=== PATIENT | female | born 1935 | race Caucasian/White ===

== ENCOUNTER 2023-12-29 04:22 | Inpatient (IN) | payer MEDICARE, OTHER ==
[~2023-12-29] VITALS: Ht 162.6 cm; Wt 73.4 kg
[2023-12-29 05:05] LABS: Basophils # (auto) 0 10 ^3/uL (0-0.2); Basophils % (auto) 0.3 % (0.0-2.0); Eosinophils # (auto) 0.1 10 ^3/uL (0-0.8); Hemoglobin 13.2 g/dL (12.2-16.2); Lymphocytes # (auto) 1.2 10 ^3/uL (0.4-5.4); Mean Corpuscular Hgb Conc. 34.7 g/dL (32.0-36.0); Mean Corpuscular Volume 97.9 fL (80.0-100.0); Monocytes # (auto) 0.6 10 ^3/uL (0-1.3); Monocytes % (auto) 9.3 % (0.0-12.0); Neutrophils # (auto) 4.8 10 ^3/uL (1.6-8.6); Neutrophils % (auto) 71.4 % (37.0-80.0); Platelet Count (auto) 184 10^3/uL (140-450); Red Blood Cells 3.88 10^6/uL (4.0-5.20); Red Cell Distribution Width 13.6 % (11.8-14.3); White Blood Cell 6.7 10^3/uL (4.4-10.8)
[2023-12-29 05:14] LABS: Chloride 109 mmol/L (98-107); Potassium 3.2 mmol/L (3.5-5.1); Sodium 140 mmol/L (136-145)
[2023-12-29 05:15] LABS: Anion Gap 7 (5-15); Carbon Dioxide 24 mmol/L (20-30)
[2023-12-29 05:16] LABS: Calcium 9.2 mg/dL (8.7-10.4)
[2023-12-29 05:20] LABS: BUN/Creatinine Ratio 23.6 (10.0-20.0); Blood Urea Nitrogen 13 mg/dL (9-23); Glucose 112 mg/dL (74-106)
[2023-12-29 05:30] VITALS: PULSE 70; RESP 17; O2SAT 95
[2023-12-29] MEDS: POTASSIUM EFFERVESENT TAB 25 MEQ PO ONE (05:43)
[2023-12-29 07:20] VITALS: PULSE 71; RESP 16; O2SAT 95
[2023-12-29] MEDS ORDERED: HYDROcodone-ACET 5/325MG TAB PO PRN (09:00)
[2023-12-29] MEDS ORDERED: NITROGLYCERIN 0.4 MG SL TAB SL PRN (09:00)
[2023-12-29] MEDS ORDERED: DOCUSATE SOD 100 MG CAP PO PRN (09:00)
[2023-12-29] MEDS ORDERED: ONDANSETRON HCL 4 MG/2 ML VIAL IV PRN (09:00)
[2023-12-29] MEDS: SODIUM CHLORIDE 0.9% 1,000 ML IV SCH (09:23)
[2023-12-29 09:29] LABS: Magnesium 1.8 mg/dL (1.6-2.6)
[2023-12-29 09:30] LABS: Phosphorus 2.6 mg/dL (2.4-5.1)
[2023-12-29] MEDS: ENOXAPARIN SOD 30 MG/0.3 ML SYRINGE SC SCH (09:58)
[2023-12-29 11:31] LABS: Urine Bacteria FEW /hpf (None Seen); Urine Blood Negative /uL (Negative); Urine Clarity Clear (Clear); Urine Color Light-Yellow (Yellow); Urine Hyaline Cast FEW /lpf (0 - 2); Urine Protein, UAD Negative (Negative); Urine Specific Gravity 1.009 (1.001-1.035); Urine Urobilinogen Normal (Negative); Urine WBC 2 /hpf (0 - 5)
[2023-12-29 19:35] VITALS: PULSE 69; RESP 11; O2SAT 96
[2023-12-30 06:05] LABS: Basophils # (auto) 0 10 ^3/uL (0-0.2); Basophils % (auto) 0.4 % (0.0-2.0); Eosinophils # (auto) 0 10 ^3/uL (0-0.8); Eosinophils % (auto) 0.7 % (0.0-7.0); Hematocrit 34.1 % (36.0-46.0); Hemoglobin 11.9 g/dL (12.2-16.2); Lymphocytes % (auto) 16.1 % (10.0-50.0); Mean Corpuscular Hemoglobin 33.3 pg (28.0-32.0); Mean Corpuscular Volume 95.2 fL (80.0-100.0); Monocytes # (auto) 0.5 10 ^3/uL (0-1.3); Monocytes % (auto) 7.9 % (0.0-12.0); Neutrophils # (auto) 4.9 10 ^3/uL (1.6-8.6); Neutrophils % (auto) 74.9 % (37.0-80.0); Platelet Count (auto) 166 10^3/uL (140-450); Red Blood Cells 3.58 10^6/uL (4.0-5.20); Red Cell Distribution Width 13.5 % (11.8-14.3); White Blood Cell 6.5 10^3/uL (4.4-10.8)
[2023-12-30 06:29] LABS: Alkaline Phosphatase 57 U/L (46-116); Anion Gap 7 (5-15); Blood Urea Nitrogen 6 mg/dL (9-23); Calcium 8.7 mg/dL (8.7-10.4); Carbon Dioxide 26 mmol/L (20-30); Chloride 108 mmol/L (98-107); Glucose 93 mg/dL (74-106); Potassium 3.3 mmol/L (3.5-5.1); Sodium 141 mmol/L (136-145)
[2023-12-30 06:31] LABS: Alanine Aminotransferase < 9 U/L (7-40); Albumin 3.5 g/dL (3.2-4.8); Aspartate Aminotransferase 20 U/L (13-40); Bilirubin, Total 1.5 mg/dL (0.2-1.0); Total Protein 5.9 g/dL (5.7-8.2)
[2023-12-30 13:32] VITALS: PULSE 82; RESP 6; O2SAT 98
[2023-12-30] MEDS: LORazepam 2MG/ML-1ML VIAL IV ONE (15:30)
[2023-12-30 20:00] VITALS: PULSE 83; RESP 16; O2SAT 99
[2023-12-30 23:00] VITALS: PULSE 69; RESP 12; O2SAT 99
[2023-12-31] MEDS: hydrALAZINE HCL 20 MG/ML VL IV ONE (05:44)
[2023-12-31 05:53] LABS: Chloride 109 mmol/L (98-107); Potassium 3.1 mmol/L (3.5-5.1); Sodium 142 mmol/L (136-145)
[2023-12-31 05:54] LABS: Anion Gap 6 (5-15); Calcium 9.3 mg/dL (8.7-10.4); Carbon Dioxide 27 mmol/L (20-30)
[2023-12-31 06:00] LABS: BUN/Creatinine Ratio 10.9 (10.0-20.0); Blood Urea Nitrogen 5 mg/dL (9-23); Glucose 87 mg/dL (74-106)
[2023-12-31 08:37] VITALS: PULSE 82; RESP 19; O2SAT 98
[2023-12-31 11:39] VITALS: PULSE 87; RESP 18; O2SAT 97
[2023-12-31 11:41] VITALS: BP 130/76; PULSE 87; RESP 18; TEMP 98.3; O2SAT 97
[2023-12-31 13:48] VITALS: BP 131/61; PULSE 89; RESP 18; TEMP 97.8; O2SAT 97
[2023-12-31] MEDS ORDERED: MIRA25TA4 PO (14:32)
[2023-12-31] MEDS ORDERED: SERT100T PO (14:32)
[2023-12-31] MEDS ORDERED: ASCO500T11 GT (14:32)
[2023-12-31] MEDS: POTASSIUM CHL 20 Meq TABLET PO ONE (16:02)
[2023-12-31 17:00] VITALS: BP 118/60; PULSE 81; RESP 18; TEMP 98.2; O2SAT 95
[2023-12-31 21:00] VITALS: BP 139/69; PULSE 74; RESP 18; TEMP 98.3; O2SAT 98
[2024-01-01 01:00] VITALS: BP 151/74; PULSE 78; RESP 17; TEMP 98; O2SAT 96
[2024-01-01 05:00] VITALS: BP 145/66; PULSE 77; RESP 17; TEMP 97.9; O2SAT 97
[2024-01-01 09:00] VITALS: BP 144/57; PULSE 79; RESP 17; TEMP 98.2; O2SAT 97
[2024-01-01 13:00] VITALS: BP 138/64; PULSE 78; RESP 18; TEMP 98.3; O2SAT 94
[2024-01-01 17:00] VITALS: BP 119/63; PULSE 75; RESP 18; TEMP 98.3; O2SAT 94
[2024-01-01 17:50] VITALS: BP 119/63; PULSE 75; RESP 18
== END 2024-01-01 19:15 | disposition home or self-care (01) | DRG 72 ==
LOC: ER 04:22 → EDBD 04:22 → OVERFLOW 09:04 → WEST WING 12-31 11:36
PROVIDERS: ADMIT Nurse Practitioner Family; ATTEND Family Medicine
DX: G93.41 Metabolic encephalopathy (principal); E87.6 Hypokalemia; F02.80 Dementia in other diseases classified elsewhere, unspecified severity, without behavioral disturbance, psychotic disturbance, mood disturbance, and anxiety; G30.9 Alzheimer's disease, unspecified; S09.8XXA Other specified injuries of head, initial encounter; W18.39XA Other fall on same level, initial encounter; Y93.89 Activity, other specified; Y92.89 Other specified places as the place of occurrence of the external cause; Y99.8 Other external cause status
CPT/HCPCS: 36415; 70450; 72170; 80048; 80053; 81001; 83735; 84100; 85025; 87081; 93005; 96360; 97110; 97116; 97163; 97530; G0378